=== PATIENT | male | born 1950 | race Caucasian/White ===

== ENCOUNTER → 2024-09-07 | Outpatient (CLI) | payer MEDICARE, SELFPAY ==
--- NOTE | 2024-09-06 17:00 | CALC_PTH ---
PATIENT: JAY MIKE Jr. LOC: [facility] U#:[id number] AGE/SX: 73/M ROOM: RE09/07/[address]: Dr. Jimy Malik MD : 1950 BED: DIS: 09/07/2024 SPEC #: [id number] RECD: 09/08/24 08:48 STATUS: MERRILL REMelly #: [id number] BUCKY: 09/06/24 17:[address]: Jimy Malik DEPT: SURGICAL PATHOLOGY RECD BY: Rufina Bradley ENTERED: 09/08/24 08:48 SP TYPE: Calculi OTHR DR: Dr. Ayan Cardoso, DO Tissues: CALCULI Procedures: Surgery Specimen Level I HEADER OPERATION: Stone analysis PRE-OP DIAGNOSIS: Calculus of ureter TISSUE SUBMITTED: Calculi GROSS DIAGNOSIS A fragment of stone, clinically urinary calculus (gross only). 09/08/2024 COMMENT The calculus is submitted in its entirety for chemical stone analysis. The results from this study will be reported separately. GROSS DESCRIPTION Received without fixative in one container labeled with the patient's name and not further designated. The specimen consists of a fragment of brown stone measuring 0.5 x 0.3 x 0.1cm. The entire specimen is submitted for stone analysis. 09/08/2024 CPT:88966
[2024-09-13 19:07] LABS: Ca Oxalate, Monohydrate 100 % (.); Size 6x3 mm (.)
== END | disposition home or self-care (01) ==
PROVIDERS: PCP Preventive Medicine Occupational Medicine; Referring Provider Urology; Visit Provider Urology
DX: N20.1 Calculus of ureter (principal)
CPT/HCPCS: 82360; 88300